=== PATIENT | male | born 1990 | race African-American/Black ===

== ENCOUNTER 2021-07-29 18:53 | Emergency (ER) | payer SELFPAY ==
[~2021-07-29] VITALS: Ht 175.3 cm; Wt 85.7 kg
[2021-07-29 18:55] VITALS: BP 177/111
[2021-07-30] MEDS ORDERED: AML5T PO (14:15)
[2021-07-30] MEDS ORDERED: DOXY-286 PO (14:15)
== END 2021-07-29 22:19 | disposition left against medical advice (07) ==
LOC: ER 18:58
DX: R10.12 Left upper quadrant pain (principal); Z53.21 Procedure and treatment not carried out due to patient leaving prior to being seen by health care provider

== ENCOUNTER 2021-07-30 11:56 | Emergency (ER) | payer SELFPAY ==
[~2021-07-30] VITALS: Ht 172.7 cm; Wt 85.7 kg
[2021-07-30 12:36] LABS: Urine Bacteria FEW /hpf (None Seen); Urine Blood Negative /uL (Negative); Urine Mucus FEW (None Seen); Urine Specific Gravity 1.024 (1.001-1.035); Urine WBC 11 /hpf (0 - 3)
[2021-07-30 12:40] LABS: Basophils # (auto) 0.1 10 ^3/uL (0-0.2); Basophils % (auto) 0.9 % (0.0-2.0); Eosinophils # (auto) 0.2 10 ^3/uL (0-0.8); Eosinophils % (auto) 1.7 % (0.0-7.0); Hematocrit 47.7 % (41.0-53.0); Hemoglobin 16.6 g/dL (13.5-17.5); Lymphocytes # (auto) 2.5 10 ^3/uL (0.4-5.4); Lymphocytes % (auto) 23.9 % (10.0-50.0); Mean Corpuscular Hemoglobin 31.8 pg (28.0-32.0); Mean Corpuscular Hgb Conc. 34.8 g/dL (32.0-36.0); Mean Corpuscular Volume 91.2 fL (80.0-100.0); Monocytes # (auto) 0.9 10 ^3/uL (0-1.3); Monocytes % (auto) 8.8 % (0.0-12.0); Neutrophils # (auto) 6.8 10 ^3/uL (1.6-8.6); Neutrophils % (auto) 64.7 % (37.0-80.0); Nucleated Red Blood Cells % 0.2 %; Red Blood Cells 5.23 10^6/uL (4.5-5.90); Red Cell Distribution Width 13.3 % (11.8-14.3); White Blood Cell 10.5 10^3/uL (4.4-10.8)
[2021-07-30 12:58] LABS: Albumin 3.8 g/dL (3.4-5.0); BUN/Creatinine Ratio 5.4; Calcium 9.1 mg/dL (8.5-10.1); Potassium 3.5 mmol/L (3.5-5.1)
[2021-07-30] MEDS ORDERED: LABETALOL HCL 5 MG/ML 4ML SYRINGE IV ONE (13:00)
[2021-07-30 13:01] LABS: Bilirubin, Total 2.4 mg/dL (0.2-1.0); Total Protein 8.5 g/dL (6.4-8.2)
[2021-07-30] MEDS ORDERED: AML5T PO (14:15)
[2021-07-30] MEDS ORDERED: cefTRIAXone 1GM/50ML D5W 50 ML IV ONE (14:15)
[2021-07-30] MEDS ORDERED: DOXY-286 PO (14:15)
[2021-07-30 14:30] VITALS: BP 141/94
[2021-07-30 14:48] LABS: Amphetamine Screen, Urine NEGATIVE (NEGATIVE); Barbiturate Scree,Urine NEGATIVE (NEGATIVE); Benzodiazephine Screen, Urine NEGATIVE (NEGATIVE); Cannabinoid Screen, Urine NEGATIVE (NEGATIVE); Cocaine Screen, Urine NEGATIVE (NEGATIVE); Opiate Scree,Urine NEGATIVE (NEGATIVE); Phencyclidine Screen, Urine NEGATIVE (NEGATIVE)
== END 2021-07-30 15:49 | disposition home or self-care (01) ==
LOC: ER 11:56
DX: R07.81 Pleurodynia (principal); I10 Essential (primary) hypertension; E80.6 Other disorders of bilirubin metabolism; N39.0 Urinary tract infection, site not specified
CPT/HCPCS: 36415; 74176; 80053; 80307; 81001; 83690; 83735; 85025; 96365; 96375; 99285; J0696; J3490

== ENCOUNTER 2021-12-15 07:56 | Emergency (ER) | payer SELFPAY ==
[~2021-12-15] VITALS: Ht 185.4 cm; Wt 92.0 kg
[~2021-12-15 07:56] MED LIST: AML5T PO; DOXY-286 PO
[2021-12-15] MEDS ORDERED: EPINEPHrine HCL 1 MG/10 ML SYRG IV ONE (07:57)
[2021-12-15] MEDS ORDERED: SODIUM BICARBONATE 8.4% INJ 50ML SYRINGE IV ONE (07:57)
[2021-12-15] MEDS ORDERED: CALCIUM CHL(10%) 100MG/ML 10ML VIAL IV ONE (07:57)
[2021-12-15] MEDS ORDERED: EPINEPHrine HCL 1 MG/10 ML SYRG ONE (08:04)
[2021-12-15] MEDS ORDERED: SODIUM BICARBONATE 8.4% INJ 50ML SYRINGE ONE (08:13)
[2021-12-15 09:07] LABS: Amphetamine Screen, Urine NEGATIVE (NEGATIVE); Barbiturate Scree,Urine NEGATIVE (NEGATIVE); Benzodiazephine Screen, Urine NEGATIVE (NEGATIVE); Cannabinoid Screen, Urine NEGATIVE (NEGATIVE); Cocaine Screen, Urine NEGATIVE (NEGATIVE); Opiate Scree,Urine NEGATIVE (NEGATIVE); Phencyclidine Screen, Urine NEGATIVE (NEGATIVE)
[2021-12-15] MEDS ORDERED: LIDOCAINE 2% (LOCAL ANESTH.) PF 5ml SDV ONE (19:35)
== END 2021-12-15 12:00 ==
LOC: ER 07:56
DX: I46.9 Cardiac arrest, cause unspecified (principal)
CPT/HCPCS: 31500; 80307; 92950; 99285; J0171; J2001